=== PATIENT | male | born 1940 ===

== ENCOUNTER 2019-12-07 12:45 | Observation (INO) ==
[2019-12-07] MEDS ORDERED: ZOFRAN INJ 4 MG VIAL IVP PRN (12:56)
[2019-12-07] MEDS ORDERED: HumuLIN R SUBCUT PRN (12:56)
[2019-12-07 17:36] LABS: BASOPHILS % (AUTO) 0.1 % (0.2-1.0); EOSINOPHILS % (AUTO) 0.1 % (0.9-2.9); HEMATOCRIT 35.6 % (42.0-54.0); HEMOGLOBIN 11.9 g/dL (13.5-18.0); LYMPHOCYTES # (AUTO) 0.7 X10^3/uL (1.3-2.9); LYMPHOCYTES % (AUTO) 3.8 % (21.0-51.0); MEAN CORPUSCULAR HEMOGLOBIN 29.4 pg (27.0-34.0); MEAN CORPUSCULAR HGB CONC 33.5 g/dL (33.0-35.0); MEAN CORPUSCULAR VOLUME 87.8 fL (80.0-100.0); MONOCYTES # (AUTO) 1.1 x10^3/uL (0.3-0.8); MONOCYTES % (AUTO) 5.8 % (0.0-13.0); NEUTROPHILS # (AUTO) 16.5 x10^3/uL (2.2-4.8); NEUTROPHILS % (AUTO) 90.2 % (42.0-75.0); PLATELET COUNT 308 X10^3/uL (150.0-450.0); RED BLOOD COUNT 4.06 X10^6/uL (4.7-6.0); RED CELL DISTRIBUTION WIDTH 14.3 % (11.6-16.5); WHITE BLOOD COUNT 18.3 X10^3/uL (3.6-10.0)
[2019-12-07 17:53] LABS: ALANINE AMINOTRANSFERASE 175 Units/L (12-78); ALBUMIN 3.4 g/dL (3.4-5.0); ALKALINE PHOSPHATASE 278 Units/L (46-116); AMYLASE 41 Units/L (25-115); ASPARTATE AMINO TRANSFERASE 80 Units/L (15-37); BLOOD UREA NITROGEN 38 mg/dL (7-18); CALCIUM 9.1 mg/dL (8.5-10.1); CARBON DIOXIDE 27.8 mmol/L (21-32); CHLORIDE 97 mmol/L (98-107); COR NA(FOR HYPERGLY) 133 mmol/L (136-145); CREATININE 1.61 mg/dL (0.70-1.30); LIPASE 67 Units/L (73-393); MAGNESIUM 1.7 mg/dL (1.7-2.9); SODIUM 132 mmol/L (136-145); TOTAL PROTEIN 7.6 g/dL (6.4-8.2); eGFR NON BLACK RACES 44 (>60)
[2019-12-07 18:11] LABS: BAND NEUTROPHILS % 2 % (0-10); PLATELET MORPHOLOGY COMMENT NORMAL (NORMAL)
[2019-12-07 18:13] LABS: BURR CELLS PRESENT
[2019-12-07] MEDS: PROTONIX INJ 40 MG VIAL IVP SCH ×2 (18:16→21:30)
[2019-12-07 18:31] VITALS: BMI 23.8
[2019-12-07] MEDS: CIPRO IV 400 MG PREMIX* 400 MG/200 ML IV.SOLN. IV SCH ×2 (18:35→21:30)
[2019-12-07] MEDS: NS 1000 ML 1,000 ML IV SCH (18:35)
[2019-12-07] MEDS ORDERED: SNACK - Diabetic Appropriate PO SCH (20:00)
[2019-12-07] MEDS: MAGNESIUM SULFATE 1 GRAM/100 mL PREMIX 1 GM/100 ML BAG IV PRN (21:31)
--- NOTE | 2019-12-07 21:53 | RAD ---
ACUTE ABDOMEN SERIESHISTORY:ABDOMINAL PAIN, DIARRHEAStudy: Frontal view of the chest, flat and upright views of the abdomenComparison:NoneFindings:Cardiomediastinal silhouette is normal in size .No focal consolidations, pleural effusions or pneumothorax.Flat and upright views of the abdomen demonstrates a normal bowel gas pattern.No free air..No abnormal calcifications or abnormal soft tissue shadows. No acute bony abnormalities.IMPRESSION:1. No acute cardiopulmonary disease.2. No evidence for acute abdominal pathology.Electronically signed by: JOVANNA PEÑALOZA (Dec 07, 2019 21:51:53)
[2019-12-08] MEDS: MAGNESIUM SULFATE 1 GRAM/100 mL PREMIX 1 GM/100 ML BAG IV PRN (00:20)
[2019-12-08 05:57] LABS: BILIRUBIN,URINE NEGATIVE (NEGATIVE); BLOOD/HEMOGLOBIN,URINE 5+ (NEGATIVE); GLUCOSE, URINE NEGATIVE (NEGATIVE); KETONES,URINE 1+ (NEGATIVE); LEUKOCYTE ESTERASE ,URINE 1+ (NEGATIVE); NITRITES,URINE NEGATIVE (NEGATIVE); PROTEIN,URINE 4+ (NEGATIVE); UROBILINOGEN,URINE NORMAL (NORMAL)
[2019-12-08 06:04] LABS: APPEARANCE,URINE CLOUDY (CLEAR); COLOR,URINE BLOODY (YELLOW)
[2019-12-08 06:05] LABS: BACTERIA,URINE TRACE /HPF (NEGATIVE); RBC,URINE TNTC /HPF (0-3); SQUAMOUS EPITHELIAL CELL,UR FEW /HPF (NEGATIVE)
[2019-12-08 06:14] LABS: BASOPHILS % (AUTO) 0.2 % (0.2-1.0); EOSINOPHILS % (AUTO) 0.1 % (0.9-2.9); HEMATOCRIT 34.6 % (42.0-54.0); HEMOGLOBIN 11.7 g/dL (13.5-18.0); LYMPHOCYTES # (AUTO) 0.5 X10^3/uL (1.3-2.9); LYMPHOCYTES % (AUTO) 3.1 % (21.0-51.0); MEAN CORPUSCULAR HEMOGLOBIN 29.5 pg (27.0-34.0); MEAN CORPUSCULAR HGB CONC 33.8 g/dL (33.0-35.0); MEAN CORPUSCULAR VOLUME 87.4 fL (80.0-100.0); MEAN PLATELET VOLUME 8.5 fL (7.4-11.0); MONOCYTES % (AUTO) 6.4 % (0.0-13.0); NEUTROPHILS % (AUTO) 90.2 % (42.0-75.0); PLATELET COUNT 283 X10^3/uL (150.0-450.0); RED BLOOD COUNT 3.96 X10^6/uL (4.7-6.0); WHITE BLOOD COUNT 15.5 X10^3/uL (3.6-10.0)
[2019-12-08 06:38] LABS: ALANINE AMINOTRANSFERASE 133 Units/L (12-78); ALBUMIN 2.7 g/dL (3.4-5.0); ALKALINE PHOSPHATASE 271 Units/L (46-116); ASPARTATE AMINO TRANSFERASE 59 Units/L (15-37); BLOOD UREA NITROGEN 33 mg/dL (7-18); CALCIUM 8.7 mg/dL (8.5-10.1); CARBON DIOXIDE 24.3 mmol/L (21-32); CHLORIDE 100 mmol/L (98-107); COR CA(FOR HYPOALB) 9.7 mg/dL (8.5-10.1); COR NA(FOR HYPERGLY) 135 mmol/L (136-145); CREATININE 1.24 mg/dL (0.70-1.30); MAGNESIUM 2.3 mg/dL (1.7-2.9); SODIUM 134 mmol/L (136-145); TOTAL PROTEIN 6.4 g/dL (6.4-8.2); eGFR NON BLACK RACES 60 (>60)
[2019-12-08] MEDS: NS 1000 ML 1,000 ML IV SCH ×2 (06:39→09:39)
[2019-12-08 06:58] LABS: PLATELET MORPHOLOGY COMMENT NORMAL (NORMAL)
[2019-12-08] MEDS ORDERED: FLOMAX ONE (09:32)
[2019-12-08] MEDS ORDERED: XYLOCAINE OINT 5% TOP ONE (09:38)
[2019-12-08] MEDS: CIPRO IV 400 MG PREMIX* 400 MG/200 ML IV.SOLN. IV SCH (09:41)
[2019-12-08] MEDS: PROTONIX INJ 40 MG VIAL IVP SCH (09:41)
[2019-12-08] MEDS ORDERED: FLOMAX PO SCH (10:00)
[2019-12-08] MEDS ORDERED: XYLOCAINE JELLY TOP ONE ×2 (10:21→10:26)
[2019-12-08] MEDS ORDERED: LOVENOX INJ 40 MG SYR SC SCH (11:00)
[2019-12-08] MEDS ORDERED: STERILE WATER IRRIGATION IR ONE (11:18)
--- NOTE | 2019-12-08 11:51 | CT ---
ABDOMEN/PELVIS W/O CONHISTORY: ABDOMINAL DISTENDED, PATIENT NOT VOIDINGComparison:NoneTechnique:Multiple non contrast axial images of the abdomen and pelvis were obtained from the lung bases to the pubic symphysis. Oral contrast was given . Dose reduction techniques including Automated Exposure Control (AEC) and adjustment of mA and kV were utlized.Findings:The sensitivity for focal lesion detection within the solid abdominal viscera is diminished without the use of IV contrast.The heart is normal in size. There is no pericardial effusion. Lung bases are clear without focal consolidation, pleural effusion or pneumothorax. Severe coronary calcification.Liver and spleen are normal in size, contour. No focal lesions. No ductal dilitation. Gallbladder is mildly dilated and demonstrates some thickening of the gallbladder wall. No radiopaque gallstones are seen. Pancreas is atrophic. Adrenal glands are normal. Mild bilateral hydroureteronephrosis. Extensive vascular calcification identifiedNo bowel obstruction or inflammation. Severe diverticulosis of the near entirety of the colon without diverticulitis. No abnormal appearing mesenteric or retroperitoneal lymph nodes. . No free fluid or fluid collections.Prostate measures 7.1 cm. The Fox balloon is inflated within the prostate itself. The bladder is markedly dilated. No free fluid or abnormal pelvic lymph nodes.No aggressive osseous lesions.IMPRESSION:1. Fox balloon at has been inflated within the prostate gland. Recommend immediate adjustment.2. Enlarged prostate gland with dilation of the urinary bladder and mild hydroureteronephrosis.3. Mildly distended gallbladder with signs of inflammation. Correlate with any symptoms of right upper quadrant pain.4. Severe diverticulosis without definite evidence of acute diverticulitis.Electronically signed by: JOVANNA PEÑALOZA (Dec 08, 2019 11:49:35)
--- NOTE | 2019-12-08 12:57 | DR.H&P ---
H&P - History & Physical for Day of: H&P Date: 12/07/19 - Chief Complaint Chief Complaint: WEAKNESS, DIARRHEA, URINARY FREQUENCY - History of Present Illness History of Present Illness: PT IS 79 WM DIRECT ADMIT WITH WEAKNESS AND DEHYDRATION WITH CO DIARRHEA PER FAMILY REPEATED OVER THE PAST MONTH. PT HAS DM AND WAS ON PO METFORMIN WHICH WAS STOPPED 2 WEEKS AGO WITHOUT IMPROVEMENT. PT'S DAUGHTER ALSO REPORTS HE HAD HAD URINARY FREQUENCY. PT HAD PMH OF TURP PER DR ANTONIO 2014, DENIES ANY COMPLICATIONS UNTIL RECENT. PT HAS HX OF MALIGNANT BRAIN TUMER, S/P CYBERKNIFE FOLLOWED BY DR ANDRE. PT ADMITTED FOR TREATMENT AND EVALUATION OF ACUTE ILLNESS. - Past Medical History Past Medical History: Arthritis, Hypertension Additional Medical History: MALIGNANT NEOPLASM OF BRAIN. PROSTATE CA, TURP 2014 - Past Surgical History Surgical History: TURP - Social History Does patient currently use any type of tobacco product: No Alcohol Use: None Drug Use: None - Medications Home Medications: No Known Drug Allergies Allergy (Verified 12/07/19 18:00) CONTINUE taking the following medications amlodipine 5 mg PO QAM 12/07/19 [History] atorvastatin 40 mg PO QHS 12/07/19 [History] carvedilol 12.5 mg PO BID 12/07/19 [History] desvenlafaxine succinate 25 mg PO QAM 12/07/19 [History] diphenoxylate-atropine 2 tab PO QID PRN 12/07/19 [History] esomeprazole magnesium 40 mg PO DAILY 12/07/19 [History] hyoscyamine sulfate 0.125 mg PO BID 12/07/19 [History] lisinopril 40 mg PO QAM 12/07/19 [History] - Review of Systems Constitutional: Weakness Eyes: No Symptoms Reported ENT: No Symptoms Reported Respiratory: No Symptoms Reported Cardiovascular: denies: No Symptoms Reported Gastrointestinal: Nausea, Diarrhea Genitourinary: Frequency, Retention Musculoskeletal: No Symptoms Reported Skin: No Symptoms Reported Neurological: Weakness (MILD, DIFFUSE), Confusion (MILD MEMORY IMPAIRED OBSERVED RELATED TO ACUTE ILLNESS) - Physical Exam Vital Signs: Temperature 98.9 F Pulse Rate [Left Brachial] 78 Respiratory Rate 20 Blood Pressure [Left Arm] 146/69 Blood Pressure [Right Arm] 155/101 Blood Pressure 121/69 Oriented: Time, Person, Place Eyes: Normal Ear: Normal Nose: Normal Throat: Normal Respiratory: RLL Diminished, LLL Diminished Cardiovascular: Normal. negative: Edema : Normal Auscultation: Bowel Sounds: Normal Palpation: Normal Tenderness: RUQ, Epigastric, Suprapubic Skin: Decreased Turgur Musculoskeletal: Normal Psychiatric: Normal Mood Description: Calm Speech Pattern: Clear, Appropriate - Assessment/Plan (1) Acute renal failure (ARF) Status: Acute Plan: ADMIT, GENTLE IV HYDRATION. CBC CMP UA AMYLASE AND LIPASE ON ADMISSION. STOOL STUDIES. VERIFY HOME MEDICATION, IV CIPRO. STICT I& OS, BP CONTROL. PAIN AND NAUSEA PRN,PPI THERAPY. ABD SERIES ON ADMISSION, CT ABD PELVIS Q AM WITH ON CONTRAST IF IMPROVED RENAL FUNCTION, OTHERWISE WITHOUT CONTRAST. (2) Dehydration Status: Acute (3) Diarrhea Status: Acute (4) Hypertension Status: Acute (5) Malignant neoplasm of brain Status: Acute (6) Hematuria Status: Acute (7) Prostatitis Status: Acute - Allergies Allergies/Adverse Reactions: Allergies Allergy/AdvReac Type Severity Reaction Status Date / Time No Known Drug Allergies Allergy Verified 12/07/19 18:00
[2019-12-08] MEDS ORDERED: PROSCAR PO SCH (13:00)
[2019-12-08] MEDS ORDERED: ROCEPHIN VIAL 1 GRAM 1 G in NS 100 ML IV + SPIKE MINIBAG* 100 ML IV SCH (13:00)
[2019-12-08 16:59] VITALS: BP 134/64
== END 2019-12-08 15:55 | disposition short-term general hospital (02) ==
LOC: OBS → MED/SURG 19:31
PROVIDERS: ADMIT Internal Medicine; ATTEND Internal Medicine
DX: R31.9 Hematuria, unspecified; R19.7 Diarrhea, unspecified; Z85.46 Personal history of malignant neoplasm of prostate; K57.92 Diverticulitis of intestine, part unspecified, without perforation or abscess without bleeding; N41.0 Acute prostatitis; D49.89 Neoplasm of unspecified behavior of other specified sites; E86.0 Dehydration; R14.0 Abdominal distension (gaseous); N17.9 Acute kidney failure, unspecified
CPT/HCPCS: 36415; 74022; 74176; 80053; 81001; 82150; 83690; 83735; 85025; A4222; C9113; G0378; J0696; J0744; J1650; J1815; J3475; J7030; J7050; S0138

== ENCOUNTER 2019-12-19 21:40 | Inpatient (IN) ==
--- NOTE | 2019-12-19 21:48 | DR.CONMALE ---
HPI - Time Seen Time seen: 21:48 - Complaint Chief Complaint Doctors Comments: Family states patient has not had a Bowel movement in over a week. Has had doses of Miralax, pills(dulcolax?) 250ml Bowel prep. Denies pain. - Reviewed Nurses Notes Review: Yes - Source History Provided: Patient, Family Member - Mode of Arrival Mode of Arrival: Ambulatory - Severity Pain Severity: None - Associated signs and symptoms Associated signs and symptoms: Vomiting PMH - PMH Past Medical History: Arthritis, Hypertension Past Surgical History: Yes Surgical History: TURP - Social History Does patient currently use any type of tobacco product: No - infectious screening Isolation: Standard ROS - Review of Systems Constitutional: No Symptoms Reported Eyes: No Symptoms Reported ENTM: No Symptoms Reported Respiratoy: No Symptoms Reported Cardiovascular: No Symptoms Reported Gastrointestinal/Abdominal: Constipation Genitourinary: No Symptoms Reported Neurological: No Symptoms Reported Musculoskeletal: No Symptoms Reported Integumentary: No Symptoms Reported Hematologic/Lymphatic: No Symptoms Reported Endocrine: No Symptoms Reported Psychiatric: No Symptoms Reported All Other Systems: Reviewed and Negative PE - General Limitations: No Limitations General Appearance: Alert, In No Apparent Distress - Head Head Exam: Normal Inspection - Eyes Eye exam: Normal Appearance, EOMI - ENT ENT Exam: Normal Exam, Normal Oropharynx - Neck Neck Exam: Normal Inspection, Full ROM, Trachea Midline - Chest Chest Inspection: Normal Inspection - Respiratory Respiratory Exam: negative: Respiratory Distress - Cardiovascular Cardiovascular Exam: Regular Rate - Gastrointestinal Abdominal Exam: Normal Inspection, Normal Bowel Sounds, Soft. negative: Distention, Tenderness, Guarding - Rectal Rectal: Deferred - Extremities Extremities Exam: Normal Inspection, Full ROM - Back Back Exam: Normal Inspection, Full ROM - Neurological Neurological Exam: Alert, Oriented X3, CN II-XII Intact - Psychiatric Psychiatric Exam: Normal Mood - Skin Skin Exam: Intact, Normal Color - Vital Signs Vital Signs: Temp Pulse Resp BP BP Pulse Ox 12/19/19 21:42 98.1 F 69 19 182/87 98 12/08/19 12:00 134/64 Course - Consultation Called: 23:54 Call Returned: 23:54 Consultation Comments: case discussed with DR. Rojas, place in observation until a CT scan with oral contrast can be done to ruleout obstruction ROR - Labs Reviewed Result Diagrams: 12/19/19 22:23 12/19/19 22:23 - Labs Reviewed Laboratory: WBC 12.6 X10^3/uL (3.6-10.0) H 12/19/19 22:23 RBC 4.01 X10^6/uL (4.7-6.0) L 12/19/19: Hgb 11.9 g/dL (13.5-18.0) L 12/19/19 22: Hct 34.6 % (42.0-54.0) L 12/19/19: MCV 86.3 fL (80.0-100.0) 12/19/19 22: MCH 29.8 pg (27.0-34.0) 12/19/19: MCHC 34.5 g/dL (33.0-35.0) 12/19/19: RDW 14.2 % (11.6-16.5) 12/19/19: Plt Count 455 X10^3/uL (150.0-450.0) H 12/19/19: MPV 6.9 fL (7.4-11.0) L 12/19/19: Neut % (Auto) 77.8 % (42.0-75.0) H 12/19/19: Lymph % (Auto) 13.0 % (21.0-51.0) L 12/19/19: Victoria % (Auto) 7.2 % (0.0-13.0) 12/19/19: Eos % (Auto) 1.0 % (0.9-2.9) 12/19/19: Baso % (Auto) 1.0 % (0.2-1.0) 12/19/19: Neut # (Auto) 9.8 x10^3/uL (2.2-4.8) H 12/19/19: Lymph # (Auto) 1.6 X10^3/uL (1.3-2.9) 12/19/19 22: Victoria # (Auto) 0.9 x10^3/uL (0.3-0.8) H 12/19/19 22: Eos # (Auto) 0.1 x10^3/uL (0.0-0.2) 03/10/20 22:23 Baso # (Auto) 0.1 X10^3/uL (0.0-0.1) 12/19/19 22:23 Absolute Nucleated RBC 0.0 /100WBC 12/19/19 22:23 Sodium 133 mmol/L (136-145) L 12/19/19 22:23 Corrected Sodium 133 mmol/L (136-145) L 12/19/19 22:23 Potassium 3.8 mmol/L (3.5-5.1) 12/19/19 22:23 Chloride 97 mmol/L (98-107) L 12/19/19 22:23 Carbon Dioxide 30.9 mmol/L (21-32) 12/19/19 22:23 BUN 11 mg/dL (7-18) 12/19/19 22:23 Creatinine 0.84 mg/dL (0.70-1.30) 12/19/19 22:23 Est GFR (MDRD) Af Amer > 60 (>60) 12/19/19 22:23 Est GFR (MDRD) Non-Af > 60 (>60) 12/19/19 22:23 Glucose 117 mg/dL (65-99) H 12/19/19 22:23 Calcium 8.9 mg/dL (8.5-10.1) 12/19/19 22:23 Corrected Calcium 9.8 mg/dL (8.5-10.1) 12/19/19 22:23 Total Bilirubin 1.30 mg/dL (0.2-1.0) H 12/19/19 22:23 AST 20 Units/L (15-37) 12/19/19 22:23 ALT 48 Units/L (12-78) 12/19/19 22:23 Alkaline Phosphatase 185 Units/L (46-116) H 12/19/19 22:23 Total Protein 6.7 g/dL (6.4-8.2) 12/19/19 22:23 Albumin 2.9 g/dL (3.4-5.0) L 12/19/19 22:23 Globulin 3.8 g/dL (2.5-4.5) 12/19/19 22:23 Albumin/Globulin Ratio 0.8 Ratio (1.1-2.1) L 12/19/19 22:23 Lipase 104 Units/L (73-393) 12/19/19 22:23 Opioid - Opioid Risk Tool Age (Josep box if 16-45): No Total: 0 Total Score Risk Category: Low Risk - Diagnosis Discharge Problem: Hyponatremia Bowel obstruction Qualifiers: Intestinal obstruction type: unspecified ileus Qualified Code(s): K56.7 - Ileus, unspecified Vomiting Qualifiers: Vomiting type: unspecified Vomiting Intractability: non-intractable Nausea presence: with nausea Qualified Code(s): R11.2 - Nausea with vomiting, unspecified - Discharge Plan Condition: Stable - Follow ups/Referrals Follow ups/Referrals: HOMAR FU [Primary Care Provider] - 3 days - Instructions
[2019-12-19 22:31] LABS: BASOPHILS # (AUTO) 0.1 X10^3/uL (0.0-0.1); EOSINOPHILS # (AUTO) 0.1 x10^3/uL (0.0-0.2); HEMATOCRIT 34.6 % (42.0-54.0); HEMOGLOBIN 11.9 g/dL (13.5-18.0); LYMPHOCYTES # (AUTO) 1.6 X10^3/uL (1.3-2.9); MEAN CORPUSCULAR HEMOGLOBIN 29.8 pg (27.0-34.0); MEAN CORPUSCULAR HGB CONC 34.5 g/dL (33.0-35.0); MEAN CORPUSCULAR VOLUME 86.3 fL (80.0-100.0); MEAN PLATELET VOLUME 6.9 fL (7.4-11.0); MONOCYTES # (AUTO) 0.9 x10^3/uL (0.3-0.8); MONOCYTES % (AUTO) 7.2 % (0.0-13.0); NEUTROPHILS # (AUTO) 9.8 x10^3/uL (2.2-4.8); NEUTROPHILS % (AUTO) 77.8 % (42.0-75.0); PLATELET COUNT 455 X10^3/uL (150.0-450.0); RED BLOOD COUNT 4.01 X10^6/uL (4.7-6.0); RED CELL DISTRIBUTION WIDTH 14.2 % (11.6-16.5); WHITE BLOOD COUNT 12.6 X10^3/uL (3.6-10.0)
[2019-12-19 22:44] LABS: ALANINE AMINOTRANSFERASE 48 Units/L (12-78); ALBUMIN 2.9 g/dL (3.4-5.0); ALKALINE PHOSPHATASE 185 Units/L (46-116); ASPARTATE AMINO TRANSFERASE 20 Units/L (15-37); BLOOD UREA NITROGEN 11 mg/dL (7-18); CALCIUM 8.9 mg/dL (8.5-10.1); CARBON DIOXIDE 30.9 mmol/L (21-32); CHLORIDE 97 mmol/L (98-107); COR CA(FOR HYPOALB) 9.8 mg/dL (8.5-10.1); COR NA(FOR HYPERGLY) 133 mmol/L (136-145); CREATININE 0.84 mg/dL (0.70-1.30); SODIUM 133 mmol/L (136-145); TOTAL PROTEIN 6.7 g/dL (6.4-8.2); eGFR NON BLACK RACES > 60 (>60)
--- NOTE | 2019-12-19 23:48 | RAD ---
Abdominal radiograph series chest supine and uprightIndication: Constipation. Abdominal painCOMPARISONCT from December 08, 2019FINDINGSThere is cardiomegaly and pulmonary hyperinflation with patchy right lower lung opacity concerning for pneumonia. No pneumothorax seen. COPD is present. There is no free air or pneumatosis. Gas and stool are seen in the colon, with mild constipation possible. There is no markedly dilated loop of small bowel identified. No abnormal calcific density seen. Catheter projects over the pelvis. Given prior CT findings, confirm functionality clinically.IMPRESSION1. Developing right lower lung pneumonia suspected2. Cardiomegaly and COPD3. Mild constipation possible, without high-grade obstruction, free air or pneumatosis convincingly demonstrated.4. Please confirm clinically Fox catheter is working, given the prior CT appearance.5. Previous CT shows slightly prominent common bile duct. Correlate with hepatic biochemical profile. If there is clinical concern for cholecystitis, ultrasound is recommended.6. Findings discussed with Dr. Bruno by Dr. Angel at the time of this reportElectronically signed by: GRISELDA ANGEL (Dec 19, 2019 23:47:24)
[2019-12-19] MEDS ORDERED: ZOFRAN INJ 4 MG VIAL IVP ONE (23:56)
[2019-12-20] MEDS ORDERED: NS 1000 ML 1,000 ML ONE (00:23)
[2019-12-20] MEDS ORDERED: ZOFRAN INJ 4 MG VIAL ONE (00:23)
[2019-12-20] MEDS: NS 1000 ML 1,000 ML IV SCH ×4 (00:40→19:27)
[2019-12-20] MEDS: COREG TAB 12.5 MG PO SCH ×3 (01:30→21:08)
[2019-12-20] MEDS ORDERED: COREG TAB 12.5 MG PO ONE (01:35)
[2019-12-20 01:57] VITALS: BMI 22.4
[2019-12-20 05:12] LABS: BILIRUBIN,URINE NEGATIVE (NEGATIVE); BLOOD/HEMOGLOBIN,URINE 5+ (NEGATIVE); GLUCOSE, URINE NEGATIVE (NEGATIVE); KETONES,URINE 2+ (NEGATIVE); LEUKOCYTE ESTERASE ,URINE 1+ (NEGATIVE); NITRITES,URINE NEGATIVE (NEGATIVE); PROTEIN,URINE 2+ (NEGATIVE); UROBILINOGEN,URINE NORMAL (NORMAL)
[2019-12-20 05:23] LABS: APPEARANCE,URINE CLEAR (CLEAR); COLOR,URINE YELLOW (YELLOW)
[2019-12-20 05:24] LABS: SQUAMOUS EPITHELIAL CELL,UR RARE /HPF (NEGATIVE)
[2019-12-20 05:25] LABS: AMORPHOUS SEDIMENT,UR 1+ /HPF (NEGATIVE); BACTERIA,URINE TRACE /HPF (NEGATIVE)
[2019-12-20 06:29] LABS: BASOPHILS # (AUTO) 0.1 X10^3/uL (0.0-0.1); BASOPHILS % (AUTO) 0.7 % (0.2-1.0); EOSINOPHILS # (AUTO) 0.1 x10^3/uL (0.0-0.2); EOSINOPHILS % (AUTO) 1.3 % (0.9-2.9); HEMATOCRIT 31.4 % (42.0-54.0); LYMPHOCYTES # (AUTO) 1.8 X10^3/uL (1.3-2.9); LYMPHOCYTES % (AUTO) 17.5 % (21.0-51.0); MEAN CORPUSCULAR HEMOGLOBIN 30.1 pg (27.0-34.0); MEAN CORPUSCULAR HGB CONC 35.1 g/dL (33.0-35.0); MEAN CORPUSCULAR VOLUME 85.8 fL (80.0-100.0); MEAN PLATELET VOLUME 7.3 fL (7.4-11.0); MONOCYTES # (AUTO) 0.9 x10^3/uL (0.3-0.8); MONOCYTES % (AUTO) 8.4 % (0.0-13.0); NEUTROPHILS # (AUTO) 7.5 x10^3/uL (2.2-4.8); NEUTROPHILS % (AUTO) 72.1 % (42.0-75.0); PLATELET COUNT 428 X10^3/uL (150.0-450.0); RED BLOOD COUNT 3.66 X10^6/uL (4.7-6.0); WHITE BLOOD COUNT 10.3 X10^3/uL (3.6-10.0)
[2019-12-20 06:38] LABS: ALANINE AMINOTRANSFERASE 43 Units/L (12-78); ALBUMIN 2.5 g/dL (3.4-5.0); ALKALINE PHOSPHATASE 157 Units/L (46-116); ASPARTATE AMINO TRANSFERASE 22 Units/L (15-37); BLOOD UREA NITROGEN 9 mg/dL (7-18); CALCIUM 8.1 mg/dL (8.5-10.1); CHLORIDE 99 mmol/L (98-107); COR CA(FOR HYPOALB) 9.3 mg/dL (8.5-10.1); CREATININE 0.65 mg/dL (0.70-1.30); SODIUM 134 mmol/L (136-145); TOTAL PROTEIN 5.8 g/dL (6.4-8.2); eGFR NON BLACK RACES > 60 (>60)
[2019-12-20] MEDS ORDERED: MICRO K EXTEN CAP 10 MEQ PO PRN (07:39)
[2019-12-20] MEDS ORDERED: POTASSIUM CHL 60 MEQ/NS 0.45% 500 ML IV PRN (07:39)
[2019-12-20] MEDS ORDERED: POTASSIUM CHLORIDE LIQ 20 MEQ UDC PO PRN (07:39)
[2019-12-20] MEDS ORDERED: KLOR-CON PO PRN (07:39)
[2019-12-20] MEDS ORDERED: K-DUR TAB 20 MEQ PO PRN (07:39)
[2019-12-20] MEDS ORDERED: K-RIDER 10 MEQ/NS 100 ML 10 MEQ/100 ML BAG IV PRN (07:39)
[2019-12-20] MEDS ORDERED: POTASSIUM CHL 40 MEQ/NS 0.45% 500 ML IV PRN (07:39)
[2019-12-20 09:41] LABS: AMYLASE 44 Units/L (25-115); LIPASE 80 Units/L (73-393)
[2019-12-20 09:48] LABS: ABG ALLEN TEST POS; ABG BASE EXCESS 4.1 mmol/L (-2.0-2.0); ABG HCO3 28.5 mmol/L (22-26)
[2019-12-20] MEDS: XOPENEX 1.25 MG/3 ML NEBULE NEB SCH ×4 (09:50→18:43)
[2019-12-20] MEDS ORDERED: SALINE 3% 15 ML NEB TX NEB ONE (09:50)
[2019-12-20] MEDS ORDERED: NS 250 ML IV 250 ML IV ONE ×2 (10:19→11:25)
[2019-12-20] MEDS: LEVAQUIN PREMIX IV 500 MG 500 MG/100 ML BAG IV SCH (11:34)
--- NOTE | 2019-12-20 12:40 | CT ---
HISTORYAltered mental status, history of brain tumorSTUDYBRAIN W WO CONTechnique: Axial pre and postcontrast images with coronal and sagittal reformats. Dose reduction procedures were used with mA/kv adjusted for body size.COMPARISONMRI brain 05/11/2019FINDINGSThe patient is status post left temporal parietal craniotomy. The ventricles, cortical sulci, and other CSF spaces are enlarged consistent with generalized atrophy likely age related. There is decreased attenuation in the periventricular white matter suggestive of small vessel vascular disease. 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 There is an area of encephalomalacia in the left temporal lobe region likely postoperative. However there is some enhancing tissue in this area which could be postsurgical in origin or could represent recurrent neoplasm. Additionally new on this examination is a 1.3 x 1.2 cm enhancing lesion in the left frontal lobe, a 2.4 by 1.1 cm enhancing lesion in the left temporal parietal cortex and a 1.5 x 1.3 cm enhancing lesion straddling the falx in the parietal region these enhancing masses have the appearance of metastatic foci. MRI with and without contrast should be considered for further evaluation and to exclude other lesions too small to visualize on CT. 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 Correlation with the pathology of the patient's original left temporal lobe mass is recommended.Generalized atrophy likely [id number] diseaseOld lacunar infarcts as described aboveElectronically signed by: ELAINE MORTENSEN (Dec 20, 2019 12:38:11)
--- NOTE | 2019-12-20 12:43 | CT ---
HISTORYABD PAIN BLOATING VOMITING CONSTIPATION AMSSTUDYCT abdomen and pelvis with [id number] images of the abdomen and pelvis were obtained with IV and oral contrast. Automatic exposure control was utilized.FINDINGSThere is marked multilevel spine degenerative change. No acute osseous abnormality. The lung bases are essentially clear.Mild gallbladder hydrops and questionable pericholecystic fat stranding is less marked compared with the prior. There is unchanged dilatation of the common duct. No significant intrahepatic biliary dilation identified. The liver, spleen, stomach, pancreas, adrenals, and kidneys demonstrate no significant abnormality. No radiopaque ureteral stone or hydroureter identified. The urinary bladder is collapsed around a Fox catheter, but the bladder appears markedly thickened despite decompression. Marked prostate enlargement is again noted. There is liquid stool throughout the colon and rectum. There is colonic diverticulosis without evidence for acute diverticulitis. No marked thickening or dilatation of the lower GI tract is identified. The appendix is not well seen, but there is no evidence for acute appendicitis. There is aortoiliac atherosclerosis, without aneurysm. Small fat containing umbilical hernia. No free fluid or adenopathy.IMPRESSION1. Marked thickening of the urinary bladder, with differential considerations including chronic outlet obstruction, neurogenic bladder, cystitis, and/or underlying mass.2. Mild gallbladder hydrops with questionable pericholecystic inflammation, decreased compared with the prior CT. Of note, patient has had interval normal HIDA.3. Liquid stool throughout the colon and rectum, compatible with diarrheal illness. Colonic diverticulosis without evidence for acute diverticulitis.4. Marked prostate enlargement, vascular calcification, and other findings as above.Electronically signed by: ELIZABETH PAN (Dec 20, 2019 12:42:08)
[2019-12-20] MEDS: ZOSYN VIAL 3.375 GRAMS 3.375 G in NS 100 ML IV + SPIKE MINIBAG* 100 ML IV SCH ×3 (13:45→21:08)
[2019-12-20] MEDS: MAGNESIUM SULFATE 1 GRAM/100 mL PREMIX 1 GM/100 ML BAG IV PRN ×2 (13:45→17:30)
[2019-12-21] MEDS: XOPENEX 1.25 MG/3 ML NEBULE NEB SCH ×4 (00:51→17:00)
[2019-12-21] MEDS: ZOSYN VIAL 3.375 GRAMS 3.375 G in NS 100 ML IV + SPIKE MINIBAG* 100 ML IV SCH ×3 (06:45→21:12)
[2019-12-21 06:51] LABS: BASOPHILS # (AUTO) 0.1 X10^3/uL (0.0-0.1); BASOPHILS % (AUTO) 1.2 % (0.2-1.0); EOSINOPHILS # (AUTO) 0.1 x10^3/uL (0.0-0.2); EOSINOPHILS % (AUTO) 1.1 % (0.9-2.9); HEMATOCRIT 30.9 % (42.0-54.0); HEMOGLOBIN 10.8 g/dL (13.5-18.0); LYMPHOCYTES # (AUTO) 1.8 X10^3/uL (1.3-2.9); LYMPHOCYTES % (AUTO) 18.1 % (21.0-51.0); MEAN CORPUSCULAR HEMOGLOBIN 30.2 pg (27.0-34.0); MEAN CORPUSCULAR VOLUME 86.1 fL (80.0-100.0); MEAN PLATELET VOLUME 7.5 fL (7.4-11.0); MONOCYTES # (AUTO) 0.9 x10^3/uL (0.3-0.8); MONOCYTES % (AUTO) 8.8 % (0.0-13.0); NEUTROPHILS % (AUTO) 70.8 % (42.0-75.0); PLATELET COUNT 440 X10^3/uL (150.0-450.0); RED BLOOD COUNT 3.59 X10^6/uL (4.7-6.0); RED CELL DISTRIBUTION WIDTH 14.1 % (11.6-16.5); WHITE BLOOD COUNT 9.9 X10^3/uL (3.6-10.0)
[2019-12-21 06:59] LABS: ALANINE AMINOTRANSFERASE 43 Units/L (12-78); ALBUMIN 2.5 g/dL (3.4-5.0); ALKALINE PHOSPHATASE 150 Units/L (46-116); ASPARTATE AMINO TRANSFERASE 21 Units/L (15-37); BLOOD UREA NITROGEN 6 mg/dL (7-18); CARBON DIOXIDE 26.4 mmol/L (21-32); CHLORIDE 100 mmol/L (98-107); COR CA(FOR HYPOALB) 9.2 mg/dL (8.5-10.1); CREATININE 0.79 mg/dL (0.70-1.30); MAGNESIUM 1.9 mg/dL (1.7-2.9); SODIUM 132 mmol/L (136-145); TOTAL PROTEIN 5.8 g/dL (6.4-8.2); eGFR NON BLACK RACES > 60 (>60)
[2019-12-21] MEDS: NS 1000 ML 1,000 ML IV SCH ×3 (06:59→18:24)
[2019-12-21] MEDS: LEVAQUIN PREMIX IV 500 MG 500 MG/100 ML BAG IV SCH (09:26)
[2019-12-21] MEDS: COREG TAB 12.5 MG PO SCH ×2 (09:26→21:11)
[2019-12-21] MEDS ORDERED: VITAMIN B-12 INJ IM ONE (13:41)
[2019-12-21] MEDS: SOLU-Medrol 40 MG VIAL IVP SCH ×2 (14:29→21:12)
--- NOTE | 2019-12-21 18:53 | DR.H&P ---
H&P - History & Physical for Day of: H&P Date: 12/19/19 - Chief Complaint Chief Complaint: ABDOMINAL PAIN, N/V, CONSTIPATION - History of Present Illness History of Present Illness: PT IS 79 WM ER ADMISSION WITH CO ABDOMINAL PAIN, N/V AND CONSTIPATION. PT RECENTLY TREATED FOR UTI, PROSTATITIS UNDER THE CARE OF DR ANTONIO IN [place]. PT HAS INDWELLING BUNDY CATHETER AT THIS TIME. PT ABD SERIES WITH CONSTIPATION. PT AND FAMILY REPORTS HE HAD TAKEN MUTIPLE BOWEL PREPS WITHOUT RELIEF. PT WAS DEHYDRATED WITH HYPONATREMIA AND RIGHT LOWER LOBE PNEUMONIA. PT HAS PMH OF DM, HTN, MALIGNANT BRAIN TUMOR, PROSTATE CA, BPH. PT ADMITTED FOR TREATMENT OF ACUTE ILLNESS. - Past Medical History Past Medical History: Diabetes, Hypertension Additional Medical History: MALIGNANT NEOPLASM OF BRAIN. PROSTATE CA, TURP 2014 - Past Surgical History Surgical History: TURP - Social History Does patient currently use any type of tobacco product: No Have you used tobacco products in the last 12 months: No Type of Tobacco Use: None Does any household member use tobacco: No Alcohol Use: None Drug Use: None - Medications Home Medications: No Known Drug Allergies Allergy (Verified 12/07/19 18:00) - Review of Systems Constitutional: Weakness Eyes: No Symptoms Reported ENT: No Symptoms Reported Respiratory: No Symptoms Reported Cardiovascular: No Symptoms Reported Gastrointestinal: Nausea, Vomiting, Abdominal Pain, Constipation Genitourinary: Other (INDWELLING BUNDY CATH) Musculoskeletal: No Symptoms Reported Skin: No Symptoms Reported Neurological: Weakness - Physical Exam Vital Signs: Temperature 98.3 F Pulse Rate [Apical] 72 Pulse Rate 69 Respiratory Rate 18 Blood Pressure [Left Arm] 152/84 Blood Pressure 182/87 O2 Sat by Pulse Oximetry 94 Oriented: Person, Place Eyes: Normal Ear: Normal Nose: Normal Throat: Dry Respiratory: RLL Diminished, LLL Diminished Cardiovascular: Normal. negative: Edema : Normal Auscultation: Bowel Sounds: Normal Palpation: Normal Tenderness: Epigastric, Mild Skin: Decreased Turgur Musculoskeletal: Normal Psychiatric: Normal Speech Pattern: Clear, Appropriate - Assessment/Plan (1) Pneumonia Status: Acute Plan: ADMIT, ADMISSION LABS. RESP CONSULT ABG. REPEAT CXR, SPUTUM CULTURE, SUPPLEMENTAL O2. PT/OT CONSULT. VERIFY HOME MEDICATION, CT ABD PELVIS R/O NAILA. NPO AFTER MIDNIGHT, AMYLASE AND LIPASE (2) Bowel obstruction Qualifiers: Intestinal obstruction type: fecal impaction Qualified Code(s): K56.41 - Fecal impaction Status: Acute (3) Diabetes Status: Acute (4) Hypertension Status: Acute (5) Malignant neoplasm of brain Status: Acute (6) UTI (urinary tract infection) Status: Acute - Allergies Allergies/Adverse Reactions: Allergies Allergy/AdvReac Type Severity Reaction Status Date / Time No Known Drug Allergies Allergy Verified 12/07/19 18:00
--- NOTE | 2019-12-21 19:19 | PCM.PROG ---
Progress Note - Progress Note for Day of Date of Exam: 12/21/19 - Subjective Subjective: PT IS 79 WM ER ADMISSION WITH ABDOMINAL PAIN, NV, R/O BOWEL OBSTRUCTIONS AND PNEUMONIA. PT HAD LARGE BM AFTER ADMISSION WITH SBUSEQUENT BMS WITH RESOLUTION IN N/V. PT DID HAVE RLL PNEUMONIA ON ADMISSION AND HE IS RECEIVING IV ABTX THERAPY, RESP THERAPY, SUPPLEMENTAL O2, SPUTUM CULTURE ORDRED. PT DENIES ANY CHEST PAIN OR SHORTNESS OF BREATH. PT HAS HAD SIGNIFICANT DECREASED APPETITE OVER THE PAST MONTH WITH RESULTING GENERALIZED WEAKNESS. PT NA 133 THIS AM, ON NS IV HYDRATION. WE ENCOURAGED ORAL ELECTROLYTE REPLACEMENT ALSO. FAMILY REQUESTING CONSULT GI FOR POSSIBLE G TUBE PLACEMENT FOR NUTRITION. PT DENIES ANY DYSPHAGIA AT THIS TIME HOWEVER FAMILY REPORTS FREQUENT COUGHING WITH EATING AND LIQUIDS. PT HAD CT SCAN OF BRAIN DUE TO CO INCREASED WEAKNESS AND CONFUSION REVEALING METASTATIC BRAIN LESIONS. PT HAD HX OF MALIGNANT BRAIN TUMOR, S/P SURGERY AND CYBERKNIFE TREATMENT WITH LAST COMPARABLE SCAN IN SEPTEMBER 2019. PT FAMILY CONCERNED WITH DISEASE PROGRESSION HE WILL BE UNABLE TO EAT OR TAKE MEDICATION. NUTRITION CONSULT AND SPEECH EVALUATION ORDERED, GI CONSULT WITH DR JOHNSON. CT OF ABD/PEL ON THIS VISIT AND PREVIOUS SUGGESTED GALLBLADDER ABNORMALITY WITH GB US RECOMMENDED. GB US ORDERED FOR IN THE AM. AMYLASE AND LIPASE WERE NORMAL, PT DENIES ANY PAIN. REVIEWED DIAGNOSTICS TESTS WITH PT AND FAMILY AND PCP. - Past Medical Family Social History Past Med/Fam/Surg Hx: No changes since H&P Allergies: Allergies No Known Drug Allergies Allergy (Verified 12/07/19 18:00) - Review of Systems ROS: No change since H&P - Vital Signs and I&O's Vital Signs: Temperature 98.3 F Pulse Rate [Apical] 72 Pulse Rate 69 Respiratory Rate 18 Blood Pressure [Left Arm] 152/84 Blood Pressure 182/87 O2 Sat by Pulse Oximetry 94 Intake and Output: Intake & Output 12/19/19 12/20/19 12/21/19 12/22/19 11:59 11:59 11:59 11:59 Intake Total 1345 / 1345 1040 / 1040 300 / 300 Output Total 550 / 550 3875 / 3875 1300 / 1300 Balance 795 / 795 -2835 / -2835 -1000 / -1000 - Physical Exam Oriented: Person, Place Eyes: Normal Ear: Normal Nose: Normal Throat: Dry Respiratory: Diminished Cardiovascular: Normal. negative: Edema : Normal Auscultation: Bowel Sounds: Normal Tenderness: Epigastric, Mild Skin: Decreased Turgur Musculoskeletal: Normal Psychiatric: Normal Speech Pattern: Clear, Appropriate - Laboratory and Diagnostics Result Diagrams: 12/21/19 05:27 12/21/19 05:27 Labs: 12/21/19 14:45 Sputum - Expectorated Sputum - Final 12/20/19 05:03 Urine,Catheterized Urine Culture - Preliminary Laboratory WBC 9.9 X10^3/uL (3.6-10.0) 12/21/19 05:27 RBC 3.59 X10^6/uL (4.7-6.0) L 12/21/19 05:27 Hgb 10.8 g/dL (13.5-18.0) L 12/21/19 05:27 Hct 30.9 % (42.0-54.0) L 12/21/19 05:27 MCV 86.1 fL (80.0-100.0) 12/21/19 05:27 MCH 30.2 pg (27.0-34.0) 12/21/19 05:27 MCHC 35.0 g/dL (33.0-35.0) 12/21/19 05:27 RDW 14.1 % (11.6-16.5) 12/21/19 05:27 Plt Count 440 X10^3/uL (150.0-450.0) 12/21/19 05:27 MPV 7.5 fL (7.4-11.0) 12/21/19 05:27 Neut % (Auto) 70.8 % (42.0-75.0) 12/21/19 05:27 Lymph % (Auto) 18.1 % (21.0-51.0) L 12/21/19 05:27 Bland % (Auto) 8.8 % (0.0-13.0) 12/21/19 05:27 Eos % (Auto) 1.1 % (0.9-2.9) 12/21/19 05:27 Baso % (Auto) 1.2 % (0.2-1.0) H 12/21/19 05:27 Neut # (Auto) 7.0 x10^3/uL (2.2-4.8) H 12/21/19 05:27 Lymph # (Auto) 1.8 X10^3/uL (1.3-2.9) 12/21/19 05:27 Bland # (Auto) 0.9 x10^3/uL (0.3-0.8) H 12/21/19 05:27 Eos # (Auto) 0.1 x10^3/uL (0.0-0.2) 12/21/19 05:27 Baso # (Auto) 0.1 X10^3/uL (0.0-0.1) 12/21/19 05:27 Absolute Nucleated RBC 0.0 /100WBC 12/21/19 05:27 Sample Site Rr 12/20/19 09:40 ABG pH 7.450 (7.35-7.45) 12/20/19 09:40 ABG pCO2 41.0 mmHg (35.0-45.0) 12/20/19 09:40 ABG pO2 77.0 mmHg (80.0-100.0) L 12/20/19 09:40 ABG HCO3 28.5 mmol/L (22-26) H 12/20/19 09:40 ABG O2 Saturation 96.0 % (90-100) 12/20/19 09:40 ABG Base Excess 4.1 mmol/L (-2.0-2.0) H 12/20/19 09:40 Wilmer Test Pos 12/20/19 09:40 A-a Gradient 21.0 mmHg 12/20/19 09:40 FiO2 21.0 12/20/19 09:40 Blood Gas Comments Pt juju well. cdn 12/20/19 09:40 Sodium 132 mmol/L (136-145) L 12/21/19 05:27 Corrected Sodium TNP 12/21/19 05:27 Potassium 4.0 mmol/L (3.5-5.1) 12/21/19 05:27 Chloride 100 mmol/L (98-107) 12/21/19 05:27 Carbon Dioxide 26.4 mmol/L (21-32) 12/21/19 05:27 BUN 6 mg/dL (7-18) L 12/21/19 05:27 Creatinine 0.79 mg/dL (0.70-1.30) 12/21/19 05:27 Est GFR (MDRD) Af Amer > 60 (>60) 12/21/19 05:27 Est GFR (MDRD) Non-Af > 60 (>60) 12/21/19 05:27 Glucose 106 mg/dL (65-99) H 12/21/19 05:27 Calcium 8.0 mg/dL (8.5-10.1) L 12/21/19 05:27 Corrected Calcium 9.2 mg/dL (8.5-10.1) 12/21/19 05:27 Magnesium 1.9 mg/dL (1.7-2.9) 12/21/19 05:27 Total Bilirubin 1.10 mg/dL (0.2-1.0) H 12/21/19 05:27 AST 21 Units/L (15-37) 12/21/19 05:27 ALT 43 Units/L (12-78) 12/21/19 05:27 Alkaline Phosphatase 150 Units/L (46-116) H 12/21/19 05:27 Total Protein 5.8 g/dL (6.4-8.2) L 12/21/19 05:27 Albumin 2.5 g/dL (3.4-5.0) L 12/21/19 05:27 Globulin 3.3 g/dL (2.5-4.5) 12/21/19 05:27 Albumin/Globulin Ratio 0.8 Ratio (1.1-2.1) L 12/21/19 05:27 Amylase 44 Units/L (25-115) 12/20/19 05:36 Lipase 80 Units/L (73-393) 12/20/19 05:36 Specimen Type Clean catch urine 12/20/19 05:03 Urine Color Yellow (YELLOW) 12/20/19 05:03 Urine Appearance Clear (CLEAR) 12/20/19 05:03 Urine pH 8.0 (5.0 - 8.0) 12/20/19 05:03 Ur Specific [place] 1.015 (1.000-1.030) 12/20/19 05:03 Urine Protein 2+ (NEGATIVE) 12/20/19 05:03 Urine Glucose (UA) Negative (NEGATIVE) 12/20/19 05:03 Urine Ketones 2+ (NEGATIVE) 12/20/19 05:03 Urine Occult Blood 5+ (NEGATIVE) 12/20/19 05:03 Urine Nitrite Negative (NEGATIVE) 12/20/19 05:03 Urine Bilirubin Negative (NEGATIVE) 12/20/19 05:03 Urine Urobilinogen Normal (NORMAL) 12/20/19 05:03 Ur Leukocyte Esterase 1+ (NEGATIVE) 12/20/19 05:03 Urine RBC 10-20 /HPF (0-3) A 12/20/19 05:03 Urine WBC 0-2 /HPF (0-5) 12/20/19 05:03 Ur Squamous Epith Cells Rare /HPF (NEGATIVE) 12/20/19 05:03 Amorphous Sediment 1+ /HPF (NEGATIVE) 12/20/19 05:03 Urine Bacteria Trace /HPF (NEGATIVE) 12/20/19 05:03 Ur Culture Indicated? Yes/culture set up 12/20/19 05:03 - Plan (1) Pneumonia Status: Acute Plan: AM LABS. RESP CONSULT ABG. REPEAT CXR, SPUTUM CULTURE, SUPPLEMENTAL O2. PT/OT CONSULT. VERIFY HOME MEDICATION, CT ABD PELVIS R/O NAILA NEGATIVE FOR OBSTRUCTION. NPO AFTER MIDNIGHT, AMYLASE AND LIPASE NORMAL (2) Bowel obstruction Status: Acute Qualifiers: Intestinal obstruction type: fecal impaction Qualified Code(s): K56.41 - Fecal impaction (3) Diabetes Status: Acute (4) Hypertension Status: Acute (5) Malignant neoplasm of brain Status: Acute (6) UTI (urinary tract infection) Status: Acute (7) Cholecystitis Status: Acute Plan: SEE CT REPORT. GB US AM (8) Metastatic cancer to brain Status: Acute (9) Protein calorie malnutrition Status: Acute Plan: NUTRITION CONSULT. GI CONSULT. SPEECH EVALUATION
[2019-12-21] MEDS ORDERED: COREG TAB 12.5 MG PO SCH (21:00)
[2019-12-21] MEDS: LIPITOR TAB 40 MG PO SCH (21:11)
[2019-12-21] MEDS: ZOFRAN INJ 4 MG VIAL IVP PRN (21:12)
[2019-12-22] MEDS: XOPENEX 1.25 MG/3 ML NEBULE NEB SCH ×4 (00:41→17:00)
[2019-12-22] MEDS: NS 1000 ML 1,000 ML IV SCH ×3 (02:00→11:04)
[2019-12-22] MEDS: SOLU-Medrol 40 MG VIAL IVP SCH (05:59)
[2019-12-22] MEDS: ZOSYN VIAL 3.375 GRAMS 3.375 G in NS 100 ML IV + SPIKE MINIBAG* 100 ML IV SCH ×3 (05:59→21:00)
[2019-12-22 06:10] LABS: BASOPHILS % (AUTO) 0.1 % (0.2-1.0); HEMATOCRIT 33.1 % (42.0-54.0); HEMOGLOBIN 11.5 g/dL (13.5-18.0); LYMPHOCYTES # (AUTO) 0.5 X10^3/uL (1.3-2.9); LYMPHOCYTES % (AUTO) 4.3 % (21.0-51.0); MEAN CORPUSCULAR HEMOGLOBIN 29.9 pg (27.0-34.0); MEAN CORPUSCULAR HGB CONC 34.8 g/dL (33.0-35.0); MEAN CORPUSCULAR VOLUME 85.9 fL (80.0-100.0); MEAN PLATELET VOLUME 7.4 fL (7.4-11.0); MONOCYTES # (AUTO) 0.2 x10^3/uL (0.3-0.8); MONOCYTES % (AUTO) 1.3 % (0.0-13.0); NEUTROPHILS # (AUTO) 10.8 x10^3/uL (2.2-4.8); NEUTROPHILS % (AUTO) 94.3 % (42.0-75.0); PLATELET COUNT 448 X10^3/uL (150.0-450.0); RED BLOOD COUNT 3.85 X10^6/uL (4.7-6.0); RED CELL DISTRIBUTION WIDTH 14.2 % (11.6-16.5); WHITE BLOOD COUNT 11.5 X10^3/uL (3.6-10.0)
[2019-12-22 06:18] LABS: ALANINE AMINOTRANSFERASE 41 Units/L (12-78); ALBUMIN 2.5 g/dL (3.4-5.0); ALKALINE PHOSPHATASE 151 Units/L (46-116); ASPARTATE AMINO TRANSFERASE 21 Units/L (15-37); BLOOD UREA NITROGEN 13 mg/dL (7-18); CALCIUM 8.5 mg/dL (8.5-10.1); CARBON DIOXIDE 23.3 mmol/L (21-32); CHLORIDE 100 mmol/L (98-107); COR CA(FOR HYPOALB) 9.7 mg/dL (8.5-10.1); COR NA(FOR HYPERGLY) 134 mmol/L (136-145); CREATININE 0.92 mg/dL (0.70-1.30); SODIUM 132 mmol/L (136-145); TOTAL PROTEIN 6.1 g/dL (6.4-8.2); eGFR NON BLACK RACES > 60 (>60)
[2019-12-22 06:22] LABS: BAND NEUTROPHILS % 2 % (0-10); PLATELET MORPHOLOGY COMMENT NORMAL (NORMAL)
--- NOTE | 2019-12-22 07:30 | RAD ---
HISTORYPneumoniaSTUDYCHEST, 1 VIEWCOMPARISONNoneFINDINGSThe heart is within normal limits in size. The chuck are normal. The lung lindquist are clear. No pleural effusions are identified. Bony thorax is unremarkable.IMPRESSIONLungs clearElectronically signed by: ELAINE MORTENSEN (Dec 22, 2019 07:28:19)
--- NOTE | 2019-12-22 07:40 | US ---
HISTORYRight upper quadrant pain, nausea, vomitingSTUDYRight upper quadrant ultrasoundTechnique: Multiple grayscale sonographic images were obtained.COMPARISONCT abdomen pelvis 12/20/2019FINDINGSThe liver is normal in size and configuration without cyst, mass, or biliary ductal dilatation. Limited Doppler evaluation was normal. The gallbladder is mildly distended however no stones are identified. Gallbladder wall is mildly thickened. The common duct measured 4.5 mm. The right kidney measures 11 cm in length. No solid masses, hydronephrosis, stones, or perinephric fluid collections were identified. The pancreas is obscured by overlying bowel gas.IMPRESSIONMild distension of the gallbladder with minimal wall thickening but no evidence for cholelithiasis. If a calculus cholecystitis is a consideration nuclear medicine biliary scan would be of further diagnostic value.Electronically signed by: ELAINE MORTENSEN (Dec 22, 2019 07:39:04)
[2019-12-22] MEDS ORDERED: STERILE WATER IRRIGATION IR ONE (08:55)
[2019-12-22] MEDS: ZESTRIL TAB 40 MG PO SCH ×2 (09:02→11:05)
[2019-12-22] MEDS: COREG TAB 12.5 MG PO SCH ×3 (09:02→21:00)
[2019-12-22] MEDS: LEVAQUIN PREMIX IV 500 MG 500 MG/100 ML BAG IV SCH (09:02)
[2019-12-22] MEDS ORDERED: DIPRIVAN VIAL 20 ML ONE (10:17)
[2019-12-22] MEDS ORDERED: PROTONIX INJ 40 MG VIAL IVP ONE (10:48)
--- NOTE | 2019-12-22 11:04 | DR.OPNOTE ---
OP Note Pre-Op Diagnosis: dysphagia . poor oral intake Post-Op Diagnosis: esophageal dysfunction disorder . stricture of lower esophagus , gastropare Procedure: EGD .osophageal dilation , PEG tube placement .. Type of Anesthesia: Local (with sedation .) Drains/Tubes Placed: Peg Tube (to keep NPO today and start feeding in am ) Complications:: none Disposition/Condition: Pt. tolerated procedure without difficulty. Extubated in the OR and taken to PACU in stable condition.
[2019-12-22] MEDS: D5 1/2 NS 1000 ML 1,000 ML IV SCH ×2 (11:42→20:00)
[2019-12-22] MEDS ORDERED: BUTT CREAM (COMPOUND) ONE (14:46)
[2019-12-22] MEDS: BUTT CREAM (COMPOUND) TOP PRN (15:00)
[2019-12-22] MEDS: LIPITOR TAB 40 MG PO SCH (21:00)
[2019-12-23] MEDS: XOPENEX 1.25 MG/3 ML NEBULE NEB SCH ×4 (00:57→17:20)
[2019-12-23] MEDS: D5 1/2 NS 1000 ML 1,000 ML IV SCH (03:00)
[2019-12-23 06:07] LABS: BASOPHILS % (AUTO) 0.1 % (0.2-1.0); HEMATOCRIT 29.9 % (42.0-54.0); HEMOGLOBIN 10.4 g/dL (13.5-18.0); LYMPHOCYTES # (AUTO) 1.3 X10^3/uL (1.3-2.9); MEAN CORPUSCULAR HGB CONC 34.9 g/dL (33.0-35.0); MEAN CORPUSCULAR VOLUME 86.1 fL (80.0-100.0); MEAN PLATELET VOLUME 7.4 fL (7.4-11.0); MONOCYTES # (AUTO) 0.9 x10^3/uL (0.3-0.8); MONOCYTES % (AUTO) 7.1 % (0.0-13.0); NEUTROPHILS # (AUTO) 10.5 x10^3/uL (2.2-4.8); NEUTROPHILS % (AUTO) 82.8 % (42.0-75.0); PLATELET COUNT 413 X10^3/uL (150.0-450.0); RED BLOOD COUNT 3.48 X10^6/uL (4.7-6.0); WHITE BLOOD COUNT 12.6 X10^3/uL (3.6-10.0)
[2019-12-23 06:24] LABS: ALANINE AMINOTRANSFERASE 33 Units/L (12-78); ALBUMIN 2.3 g/dL (3.4-5.0); ALKALINE PHOSPHATASE 124 Units/L (46-116); ASPARTATE AMINO TRANSFERASE 16 Units/L (15-37); BLOOD UREA NITROGEN 15 mg/dL (7-18); CALCIUM 8.2 mg/dL (8.5-10.1); CARBON DIOXIDE 27.8 mmol/L (21-32); CHLORIDE 101 mmol/L (98-107); COR CA(FOR HYPOALB) 9.6 mg/dL (8.5-10.1); COR NA(FOR HYPERGLY) 136 mmol/L (136-145); SODIUM 134 mmol/L (136-145); TOTAL PROTEIN 5.4 g/dL (6.4-8.2); eGFR NON BLACK RACES > 60 (>60)
[2019-12-23] MEDS: ZOSYN VIAL 3.375 GRAMS 3.375 G in NS 100 ML IV + SPIKE MINIBAG* 100 ML IV SCH ×3 (06:54→21:19)
[2019-12-23] MEDS: LEVAQUIN PREMIX IV 500 MG 500 MG/100 ML BAG IV SCH (09:12)
[2019-12-23] MEDS: PROTONIX INJ 40 MG VIAL IVP SCH (09:12)
[2019-12-23] MEDS: ZESTRIL TAB 40 MG PO SCH (09:19)
[2019-12-23] MEDS: COREG TAB 12.5 MG PO SCH ×2 (09:19→21:19)
[2019-12-23] MEDS: BUTT CREAM (COMPOUND) TOP PRN (10:55)
[2019-12-23] MEDS: PATIENT'S HOME MEDICATION PO SCH ×10 (13:57→23:00)
[2019-12-23] MEDS: ACTOS PO SCH (14:33)
[2019-12-23] MEDS: GLUCOPHAGE XR 24-HR PO SCH (14:33)
[2019-12-23] MEDS: NS 1000 ML 1,000 ML IV SCH ×3 (14:33→21:21)
[2019-12-23] MEDS: LIPITOR TAB 40 MG PO SCH (21:20)
[2019-12-24] MEDS: PATIENT'S HOME MEDICATION PO SCH ×18 (00:40→23:20)
[2019-12-24] MEDS: XOPENEX 1.25 MG/3 ML NEBULE NEB SCH ×4 (00:47→16:40)
[2019-12-24] MEDS: NS 1000 ML 1,000 ML IV SCH ×5 (04:28→23:21)
[2019-12-24 05:25] LABS: BASOPHILS % (AUTO) 0.2 % (0.2-1.0); EOSINOPHILS % (AUTO) 0.1 % (0.9-2.9); HEMATOCRIT 32.2 % (42.0-54.0); LYMPHOCYTES # (AUTO) 1.5 X10^3/uL (1.3-2.9); LYMPHOCYTES % (AUTO) 12.9 % (21.0-51.0); MEAN CORPUSCULAR HGB CONC 34.3 g/dL (33.0-35.0); MEAN CORPUSCULAR VOLUME 87.4 fL (80.0-100.0); MEAN PLATELET VOLUME 7.9 fL (7.4-11.0); MONOCYTES # (AUTO) 0.8 x10^3/uL (0.3-0.8); MONOCYTES % (AUTO) 6.5 % (0.0-13.0); NEUTROPHILS # (AUTO) 9.4 x10^3/uL (2.2-4.8); NEUTROPHILS % (AUTO) 80.3 % (42.0-75.0); PLATELET COUNT 372 X10^3/uL (150.0-450.0); RED BLOOD COUNT 3.68 X10^6/uL (4.7-6.0); RED CELL DISTRIBUTION WIDTH 14.2 % (11.6-16.5); WHITE BLOOD COUNT 11.7 X10^3/uL (3.6-10.0)
[2019-12-24 05:32] LABS: ALANINE AMINOTRANSFERASE 31 Units/L (12-78); ALBUMIN 2.4 g/dL (3.4-5.0); ALKALINE PHOSPHATASE 118 Units/L (46-116); ASPARTATE AMINO TRANSFERASE 16 Units/L (15-37); BLOOD UREA NITROGEN 13 mg/dL (7-18); CARBON DIOXIDE 25.5 mmol/L (21-32); CHLORIDE 100 mmol/L (98-107); COR CA(FOR HYPOALB) 9.3 mg/dL (8.5-10.1); COR NA(FOR HYPERGLY) 135 mmol/L (136-145); CREATININE 0.84 mg/dL (0.70-1.30); SODIUM 134 mmol/L (136-145); TOTAL PROTEIN 5.5 g/dL (6.4-8.2); eGFR NON BLACK RACES > 60 (>60)
[2019-12-24] MEDS: ZOSYN VIAL 3.375 GRAMS 3.375 G in NS 100 ML IV + SPIKE MINIBAG* 100 ML IV SCH ×3 (06:28→21:00)
[2019-12-24] MEDS: ACTOS PO SCH (09:33)
[2019-12-24] MEDS: GLUCOPHAGE XR 24-HR PO SCH (09:33)
[2019-12-24] MEDS: COREG TAB 12.5 MG PO SCH ×2 (09:34→21:00)
[2019-12-24] MEDS: PROTONIX INJ 40 MG VIAL IVP SCH (09:34)
[2019-12-24] MEDS: LEVAQUIN PREMIX IV 500 MG 500 MG/100 ML BAG IV SCH (09:34)
[2019-12-24] MEDS: ZESTRIL TAB 40 MG PO SCH (09:34)
[2019-12-24] MEDS ORDERED: SOLU-Medrol 40 MG VIAL ONE (14:20)
[2019-12-24] MEDS: SOLU-Medrol 40 MG VIAL IVP SCH ×2 (14:38→23:26)
[2019-12-24] MEDS ORDERED: HumuLIN R SUBCUT PRN (16:00)
[2019-12-24] MEDS ORDERED: ZESTRIL TAB 10 MG ONE (17:05)
[2019-12-24] MEDS ORDERED: ZESTRIL TAB 20 MG ONE (17:05)
[2019-12-24] MEDS ORDERED: ZESTRIL TAB 20 MG PO ONE (17:15)
[2019-12-24] MEDS ORDERED: ZESTRIL TAB 10 MG PO ONE (17:15)
[2019-12-24] MEDS: ZOFRAN INJ 4 MG VIAL IVP PRN (20:00)
[2019-12-24] MEDS: LIPITOR TAB 40 MG PO SCH (21:00)
[2019-12-24] MEDS: SNACK - Diabetic Appropriate PO SCH (23:22)
[2019-12-25] MEDS: XOPENEX 1.25 MG/3 ML NEBULE NEB SCH ×5 (00:05→16:49)
[2019-12-25] MEDS: NS 1000 ML 1,000 ML IV SCH ×3 (00:13→20:33)
[2019-12-25] MEDS: PATIENT'S HOME MEDICATION PO SCH ×11 (01:00→14:30)
[2019-12-25] MEDS: ZOSYN VIAL 3.375 GRAMS 3.375 G in NS 100 ML IV + SPIKE MINIBAG* 100 ML IV SCH ×3 (05:02→21:04)
[2019-12-25] MEDS: SOLU-Medrol 40 MG VIAL IVP SCH ×3 (05:02→21:04)
[2019-12-25 05:38] LABS: ALANINE AMINOTRANSFERASE 25 Units/L (12-78); ALBUMIN 2.3 g/dL (3.4-5.0); ALKALINE PHOSPHATASE 117 Units/L (46-116); ASPARTATE AMINO TRANSFERASE 13 Units/L (15-37); BLOOD UREA NITROGEN 13 mg/dL (7-18); CALCIUM 8.1 mg/dL (8.5-10.1); CARBON DIOXIDE 26.1 mmol/L (21-32); CHLORIDE 99 mmol/L (98-107); COR CA(FOR HYPOALB) 9.5 mg/dL (8.5-10.1); COR NA(FOR HYPERGLY) 133 mmol/L (136-145); CREATININE 0.74 mg/dL (0.70-1.30); SODIUM 131 mmol/L (136-145); TOTAL PROTEIN 5.4 g/dL (6.4-8.2); eGFR NON BLACK RACES > 60 (>60)
[2019-12-25 05:41] LABS: BASOPHILS % (AUTO) 0.2 % (0.2-1.0); HEMATOCRIT 31.7 % (42.0-54.0); HEMOGLOBIN 11.1 g/dL (13.5-18.0); LYMPHOCYTES # (AUTO) 0.4 X10^3/uL (1.3-2.9); LYMPHOCYTES % (AUTO) 6.1 % (21.0-51.0); MEAN CORPUSCULAR HEMOGLOBIN 30.1 pg (27.0-34.0); MEAN CORPUSCULAR VOLUME 85.8 fL (80.0-100.0); MEAN PLATELET VOLUME 7.6 fL (7.4-11.0); MONOCYTES # (AUTO) 0.1 x10^3/uL (0.3-0.8); MONOCYTES % (AUTO) 1.4 % (0.0-13.0); NEUTROPHILS # (AUTO) 6.5 x10^3/uL (2.2-4.8); NEUTROPHILS % (AUTO) 92.3 % (42.0-75.0); PLATELET COUNT 343 X10^3/uL (150.0-450.0); RED BLOOD COUNT 3.69 X10^6/uL (4.7-6.0); RED CELL DISTRIBUTION WIDTH 14.3 % (11.6-16.5)
[2019-12-25 06:03] LABS: CRENATED RBC SLIGHT; PLATELET MORPHOLOGY COMMENT NORMAL (NORMAL)
[2019-12-25] MEDS ORDERED: ZESTRIL TAB 40 MG PO SCH (09:00)
[2019-12-25] MEDS: GLUCOPHAGE XR 24-HR PO SCH (09:20)
[2019-12-25] MEDS: PROTONIX INJ 40 MG VIAL IVP SCH (09:21)
[2019-12-25] MEDS: ACTOS PO SCH (09:21)
[2019-12-25] MEDS: COREG TAB 12.5 MG PO SCH ×2 (09:21→20:35)
[2019-12-25] MEDS: LEVAQUIN PREMIX IV 500 MG 500 MG/100 ML BAG IV SCH (09:22)
[2019-12-25] MEDS: SNACK - Diabetic Appropriate PO SCH (20:34)
[2019-12-25] MEDS: LIPITOR TAB 40 MG PO SCH (20:35)
[2019-12-26] MEDS ORDERED: XOPENEX 1.25 MG/3 ML NEBULE NEB PRN (00:08)
[2019-12-26] MEDS: XOPENEX 1.25 MG/3 ML NEBULE NEB SCH (00:09)
[2019-12-26] MEDS: ZOFRAN INJ 4 MG VIAL IVP PRN (00:47)
[2019-12-26 03:43] VITALS: BP 167/84
[2019-12-26] MEDS: NS 1000 ML 1,000 ML IV SCH (03:45)
== END 2019-12-26 04:55 | disposition home or self-care (01) | DRG 194 ==
LOC: MED/SURG 21:41 → ER 21:41 → MED/SURG 12-20 01:20
PROVIDERS: ADMIT Internal Medicine; ATTEND Internal Medicine
CPT/HCPCS: 36415; 36600; 70470; 71010; 71045; 74022; 74177; 76705; 80053; 81001; 82150; 82607; 82803; 83690; 83735; 84132; 84425; 85025; 87040; 87070; 87086; 87205; 92526; 92610; 94640; 94760; 96365; 96367; 96374; 96375; 97110; 97112; 97162; 97166; 97530; 99100; 99284; A4216; A4217; A4222; C9113; G0378; J1956; J2405; J2543; J2704; J2920; J3420; J3475; J7030; J7050; S5010